=== PATIENT | female | born 1995 | race Hispanic/Latino ===

== ENCOUNTER 2018-07-28 10:51 | Emergency (ER) | payer OTHER ==
[2018-07-28] MEDS ORDERED: HYDROCODONE/APAP 7.5/325 MG TAB ONE (12:09)
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
== END 2018-07-28 13:40 | disposition home or self-care (01) ==
LOC: ER 10:51
DX: S30.1XXA Contusion of abdominal wall, initial encounter (principal); S20.219A Contusion of unspecified front wall of thorax, initial encounter; Y04.0XXA Assault by unarmed brawl or fight, initial encounter; Z72.0 Tobacco use
CPT/HCPCS: 99284